=== PATIENT | male | born 1995 | race Caucasian/White ===

== ENCOUNTER 2018-04-02 02:50 | Emergency (ER) | payer SELFPAY ==
[2018-04-02 02:55] VITALS: BP 145/93
--- NOTE | 2018-04-02 03:32 | ER Report ---
History and Physical Time Seen By MD: 03:32 Hx. of Stated Complaint: PATIENT HAS BEEN EXPERIENCING REALLY BAD ANXIETY OVER THE LAST 4DAYS, WOULD LIKE SOME MEDICATION TO HELP. HPI/ROS CHIEF COMPLAINT: Anxiety attack HISTORY OF PRESENT ILLNESS: Patient is a 22-year-old male here with complaints of anxiety attacks for the past several days. He is in the area playing baseball and reports that in the past he had been treated with a medication for anxiety however currently does not have a PCP or her therapist. The patient denies suicidal or homicidal ideation or previous history of attempts. He currently is not treated with any medications and denies medical issues. Patient is well appearing at time of evaluation and reports that he has minimal anxiety currently. Patient denies pain, headache, blurred vision, fevers or chills, nausea, vomiting. REVIEW OF SYSTEMS: Constitutional: No fever, no chills. Eyes: No discharge. ENT: No sore throat. Cardiovascular: No chest pain, no palpitations. Respiratory: No cough, no shortness of breath. Gastrointestinal: No abdominal pain, no vomiting. Genitourinary: No hematuria. Musculoskeletal: No back pain. Skin: No rashes. Neurological: No headache. Psych: + anxious Allergies: Coded Allergies: cat dander (Verified Allergy, Intermediate, 04/02/18) Home Meds Active Scripts Lorazepam (LORAZEPAM) 1 Mg Tab, 1 TAB PO Q8H for Anxiety, #10 TAB Prov:SANDRO GALEAS DO 04/02/18 Hx Substance Use Disorder: No Hx Alcohol Use: Yes (OCCASSIONAL) Constitutional Vital Sign - Last 24 Hours 04/02/18 02:55 Temp 99.0 Pulse 72 Resp 16 B/P (MAP) 145/93 Pulse Ox 95 O2 Delivery Room Air Physical Exam General Appearance: The patient is alert, has no immediate need for airway protection and no current signs of toxicity. Anxiety Eyes: Pupils equal and round no injection. Respiratory: Chest is non tender, lungs are clear to auscultation. Cardiac: regular rate and rhythm Gastrointestinal: Abdomen is soft and non tender, no masses, bowel sounds normal. Musculoskeletal: Neck: Neck is supple and non tender. Extremities have full range of motion and are non tender. Skin: No rashes or lesions. DIFFERENTIAL DIAGNOSIS: After history and physical exam differential diagnosis was considered for anxiety, depression, drug-seeking behavior Medical Decision Making ED Course/Re-evaluation ED Course Patient is a 22-year-old male here with complaints of anxiety for the past several days had been previously controlled with medications, patient does not recall which medication. She reports it is anxiety currently is not as bad however he has been having severe episodes. Patient was given a dose of Ativan for home use. Patient was advised to follow up with PCP and psychiatrist. Decision to Disposition Date: Apr 02, 2018 Decision to Disposition Time: 03:55 Depart Departure Latest Vital Signs Vital Signs Date Time Temp Pulse Resp B/P (MAP) Pulse Ox O2 Delivery O2 Flow Rate FiO2 04/02/18 02:55 99.0 72 16 145/93 95 Room Air Impression: Primary Impression: ANXIETY DISORDER, UNSPECIFIED Condition: Improved Disposition: HOME OR SELF-CARE New Scripts Lorazepam (LORAZEPAM) 1 Mg Tab 1 TAB PO Q8H for Anxiety, #10 TAB Prov: SANDRO GALEAS DO 04/02/18 Patient Instructions: Anxiety (ED), Lorazepam (By mouth) Additional Instructions: You may take 1 tablet of Ativan as needed for anxiety every 8 hours. These follow-up with your family doctor or psychiatrist for further treatment and care. SANDRO GALEAS DO Apr 02, 2018 03:32
[2018-04-02] MEDS ORDERED: LORazepam 1 MG TAB PO ONE (03:40)
[2018-04-02] MEDS ORDERED: LOR1 PO (03:47)
== END 2018-04-02 03:53 | disposition home or self-care (01) ==
LOC: ER 03:00
DX: F41.9 Anxiety disorder, unspecified (principal)
CPT/HCPCS: 99281